=== PATIENT | female | born 1995 | race Caucasian/White ===

== ENCOUNTER 2018-08-28 10:34 | Outpatient (CLI) | payer MEDICAID ==
--- NOTE | 2018-08-28 14:09 | ULT ---
OBSTETRICAL ULTRASOUND: History: Evaluate anatomy and dates. 2nd trimester . Technique: Multiple longitudinal and transverse images of an intrauterine is obtained using a multihertz curvilinear transducer. FINDINGS: Real-time, color, and spectral waveform doppler analysis demonstrates a viable intrauterine with a fetus in cephalic presentation. The placenta is posterior. Cardiac activity measures 155 beat s/minute. Biometrics: BPD 44 mm 19 weeks 2 days HC 159 mm 19 weeks 4 days AC 145 mm 19 weeks 6 days FL 31 mm 19 weeks 5 days Composite age, 19 weeks 5 days, with an estimated date of delivery of 01-17-19. Estimated weight is 308 grams, +/- 45 grams. The patient's estimated weight measures 17%. anatomic evaluation demonstrates intracranial structures, cerebellum, four-chamber heart, stoma ch, kidneys, cord insertion, urinary bladder, spine, lips and nose, lower extremity, and three vessel cord all to be unremarkable. IMPRESSION: Viable IUP. Estimated gestational age is 19 weeks 5 days with an estimated date of delivery of 9. POS: [facility]
== END 2018-08-28 10:35 | disposition home or self-care (01) ==
LOC: BICULT 10:34
PROVIDERS: ATTEND Family Medicine
DX: Z34.82 Encounter for supervision of other normal pregnancy, second trimester (principal); Z3A.19 19 weeks gestation of pregnancy
CPT/HCPCS: 76805

== ENCOUNTER 2019-01-06 22:00 | Inpatient (IN) | payer OTHER ==
[~2019-01-06 22:00] MED LIST: Bupivacaine/Epinephrine 0.25% 30 ML VIAL ONE
[2019-01-06] MEDS ORDERED: Methylergonovine 0.2 MG/ML VIAL IM PRN (22:53)
[2019-01-06] MEDS ORDERED: Misoprostol 200 MCG TAB PR PRN (22:53)
[2019-01-06] MEDS ORDERED: Diphenoxylate HCl/Atropine Tablet PO PRN (22:53)
[2019-01-06] MEDS ORDERED: Ibuprofen 800 MG TAB PO PRN (22:53)
[2019-01-06] MEDS ORDERED: Lidocaine 1% (PF) 30 ML VIAL SC PRN (22:53)
[2019-01-06] MEDS ORDERED: Carboprost 250 MCG/ML AMP IM PRN (22:53)
[2019-01-06] MEDS ORDERED: HYDROcodone/Acetaminophen 5/325 mg Tablet PO PRN (22:53)
[2019-01-06] MEDS ORDERED: Ondansetron PF 4 MG/2 ML Vial IVP PRN (22:53)
[2019-01-06] MEDS ORDERED: Penicillin G Potassium 5 MILL.UNITS in Sodium Chloride 0.9% 100 ML IVPB SCH (23:00)
[2019-01-06] MEDS ORDERED: NS w/ Oxytocin 10 units 500 ML IV SCH (23:00)
[2019-01-06 23:30] VITALS: BMI 38.4
[2019-01-06] MEDS: Lactated Ringer's 1,000 ML IV SCH (23:52)
[2019-01-07 00:03] LABS: Mean Corpuscular Hemoglobin 27.9 pg (27.0-31.0); Mean Platelet Volume 10.3 fL (7.4-10.4); Platelet Count 190 thou/uL (130-400); RBC Distribution Width 16.5 % (11.5-14.5); White Blood Cell (WBC) Count 11.1 thou/uL (4.8-10.8)
[2019-01-07] MEDS: Misoprostol 100 MCG TAB PO SCH ×4 (00:03→22:15)
[2019-01-07 00:41] LABS: HBSAg Index 0.23 S/CO (0-0.99); Hep B Surf Ag Non-Reactive S/CO (NonReactive)
[2019-01-07 00:42] LABS: Syphilis Antibody Nonreactive (Nonreactive); Syphilis Antibody Index 0.03 S/CO (<1.00 Non-Reactive)
[2019-01-07] MEDS: Lactated Ringer's 1,000 ML IV SCH ×2 (03:52→12:46)
[2019-01-07] MEDS: Penicillin G 2.5 MILL.units 2.5 MILL.UNITS in Premix Bag 1 BAG IVPB SCH ×2 (12:46→18:14)
[2019-01-07] MEDS ORDERED: Misoprostol 100 MCG TAB PO SCH (18:15)
[2019-01-08] MEDS: Misoprostol 100 MCG TAB PO SCH ×2 (02:26→06:37)
[2019-01-08] MEDS: Penicillin G 2.5 MILL.units 2.5 MILL.UNITS in Premix Bag 1 BAG IVPB SCH ×6 (07:03→22:21)
[2019-01-08] MEDS: Lactated Ringer's 1,000 ML IV SCH ×4 (07:16→19:40)
[2019-01-08] MEDS: NS w/ Oxytocin 10 units 500 ML IV SCH (10:44)
[2019-01-08] MEDS: Butorphanol Tartrate 1 MG/ML VIAL SLOW IVP PRN ×2 (12:32→13:49)
[2019-01-08] MEDS ORDERED: Fentanyl 4 mcg/Bup 0.1% Cadd 100 ML ONE ×2 (14:47→23:49)
[2019-01-08] MEDS ORDERED: Lidocaine 1.5%/Epinephrine 1:200,000 5 ML AMPUL IJ ONE (15:25)
[2019-01-08] MEDS ORDERED: Acetaminophen 325 MG TAB PO PRN (15:47)
[2019-01-08] MEDS ORDERED: Naloxone HCl 0.4 mg/ml Vial IVP PRN ×2 (15:47)
[2019-01-08] MEDS ORDERED: ePHEDrine/0.9% NaCl/PF SYRINGE 50 mg/10 ml SLOW IVP PRN (15:47)
[2019-01-08] MEDS ORDERED: Lactated Ringer's 500 ML IV PRN (15:47)
[2019-01-08] MEDS ORDERED: Promethazine HCl 25 MG/ML VIAL IM PRN (15:47)
[2019-01-08] MEDS ORDERED: diphenhydrAMINE 50 MG/ML VIAL IVP PRN (15:47)
[2019-01-08] MEDS ORDERED: Eucerin (Mineral Oil/Petrolatum,White) 30 gm Jar TOP PRN (15:47)
[2019-01-08] MEDS ORDERED: Ondansetron PF 4 MG/2 ML Vial IVP PRN (15:47)
[2019-01-08] MEDS ORDERED: Communication Order-Pharmacy FS SCH (16:00)
[2019-01-08] MEDS ORDERED: Fentanyl 4 mcg/Bupivacaine 0.1% Cassette 100 ML EPIDURAL SCH (16:00)
[2019-01-09] MEDS ORDERED: Lidocaine 1% (PF) 30 ML VIAL ONE (02:16)
[2019-01-09] MEDS: NS / Oxytocin 40 units/1000ml 1,000 ML IV PRN ×2 (03:03→04:07)
[2019-01-09] MEDS: NS w/ Oxytocin 10 units 500 ML IV SCH (03:52)
[2019-01-09] MEDS: Penicillin G 2.5 MILL.units 2.5 MILL.UNITS in Premix Bag 1 BAG IVPB SCH (03:52)
[2019-01-09] MEDS ORDERED: Benzocaine/Menthol 20-0.5% 60 ML CAN TOP PRN (04:31)
[2019-01-09] MEDS ORDERED: Ondansetron PF 4 MG/2 ML Vial IVP PRN (04:31)
[2019-01-09] MEDS ORDERED: Lanolin Ointment 7 GM TUBE TOP PRN (04:31)
[2019-01-09] MEDS ORDERED: Preparation H Ointment 28 GM TUBE PR PRN (04:31)
[2019-01-09] MEDS ORDERED: NS / Oxytocin 40 units/1000ml 1,000 ML IV SCH (04:31)
[2019-01-09] MEDS ORDERED: Bisacodyl 10 MG SUPP PR PRN (04:31)
[2019-01-09] MEDS ORDERED: HYDROcodone/Acetaminophen 5/325 mg Tablet PO PRN ×2 (04:31)
[2019-01-09] MEDS ORDERED: Milk Of Magnesia 30 ML UDCUP PO PRN (04:31)
[2019-01-09] MEDS ORDERED: diphenhydrAMINE 25 MG CAP PO PRN (04:31)
[2019-01-09] MEDS: Ibuprofen 800 MG TAB PO SCH ×3 (07:09→21:55)
[2019-01-09] MEDS ORDERED: Adacel (T-DAP) 0.5 ML SYRINGE IM ONE (09:00)
[2019-01-09] MEDS: Docusate Calcium (SURFAK) 240 MG CAP PO SCH ×2 (09:30→21:55)
[2019-01-09] MEDS: Prenatal Vitamin 1 TAB PO SCH (09:30)
[2019-01-09] MEDS: Ferrous Sulfate 325 MG TAB PO SCH ×2 (10:25→14:20)
[2019-01-09] MEDS: Lactated Ringer's 1,000 ML IV SCH ×3 (10:25→21:55)
[2019-01-10] MEDS: Ibuprofen 800 MG TAB PO SCH ×3 (05:24→21:55)
[2019-01-10 06:55] LABS: Hemoglobin 10.1 g/dL (12.0-16.0); Mean Corpuscular HGB CONC 32.4 g/dL (32.0-36.0); Mean Corpuscular Volume 89.4 fL (78.0-98.0); Mean Platelet Volume 9.9 fL (7.4-10.4); Platelet Count 178 thou/uL (130-400); RBC Distribution Width 16.1 % (11.5-14.5); Red Blood Cell (RBC) Count 3.49 mill/uL (4.20-5.40); White Blood Cell (WBC) Count 12.5 thou/uL (4.8-10.8)
[2019-01-10] MEDS: Ferrous Sulfate 325 MG TAB PO SCH ×2 (09:17→15:19)
[2019-01-10] MEDS: Docusate Calcium (SURFAK) 240 MG CAP PO SCH ×2 (09:17→21:55)
[2019-01-10] MEDS: Lactated Ringer's 1,000 ML IV SCH ×2 (09:17→14:12)
[2019-01-10] MEDS: Prenatal Vitamin 1 TAB PO SCH (09:17)
[2019-01-11 08:12] VITALS: BP 117/72; TEMP 98.6
[2019-01-11] MEDS: Ferrous Sulfate 325 MG TAB PO SCH (09:10)
[2019-01-11] MEDS: Lactated Ringer's 1,000 ML IV SCH ×2 (09:10→13:44)
[2019-01-11] MEDS: Ibuprofen 800 MG TAB PO SCH ×2 (09:11→13:44)
[2019-01-11] MEDS: Prenatal Vitamin 1 TAB PO SCH (09:21)
[2019-01-11] MEDS: Docusate Calcium (SURFAK) 240 MG CAP PO SCH (09:22)
[2019-01-11] MEDS ORDERED: Measles/Mumps/Rubella 10 MCG/0.5 ML VIAL SC ONE (16:30)
== END 2019-01-11 17:00 | disposition home or self-care (01) | DRG 807 ==
LOC: L&D 22:51 → 3SW 01-09 05:40
PROVIDERS: ADMIT Family Medicine; ATTEND Family Medicine
PROC: 10E0XZZ Delivery of Products of Conception, External Approach (ICD-10-PCS; principal; 2019-01-06)
PROC: 10907ZC Drainage of Amniotic Fluid, Therapeutic from Products of Conception, Via Natural or Artificial Opening (ICD-10-PCS; 2019-01-06)
PROC: 0W8NXZZ Division of Female Perineum, External Approach (ICD-10-PCS; 2019-01-06)
DX: O99.824 Streptococcus B carrier state complicating childbirth (principal); Z37.0 Single live birth; O99.213 Obesity complicating pregnancy, third trimester; E66.9 Obesity, unspecified; Z3A.39 39 weeks gestation of pregnancy
CPT/HCPCS: 36415; 51702; 85027; 86780; 86850; 86900; 86901; 87340; 90707; J0595; J2001; J2540; J3490; J7050